=== PATIENT | female | born 1945 | race Two or more races ===

== ENCOUNTER → 2016-12-16 | Outpatient (CLI) | payer MEDICARE, MEDICAID ==
[~2016-12-16] MED LIST: OXYC5TAB2 PO; PANTOPRAZOLE PO; PROM25SU34 PO; RANITIDINE; REPA0.5T4 PO; TRAM50TA2 PO
[2016-12-16 10:01] LABS: ASPARTATE AMINO TRANSFERASE 14 U/L (15-37); BLOOD UREA NITROGEN 19 mg/dL (7-18)
== END | disposition home or self-care (01) ==
LOC: STAR 08:28
PROVIDERS: ATTEND Orthopaedic Surgery
DX: M19.011 Primary osteoarthritis, right shoulder (principal); M75.121 Complete rotator cuff tear or rupture of right shoulder, not specified as traumatic; M75.122 Complete rotator cuff tear or rupture of left shoulder, not specified as traumatic; M19.012 Primary osteoarthritis, left shoulder; M75.02 Adhesive capsulitis of left shoulder; Z96.612 Presence of left artificial shoulder joint
CPT/HCPCS: 36415; 80053; 81003; 87081; 93005

== ENCOUNTER 2016-12-22 06:57 | Inpatient (IN) | payer MEDICARE, MEDICAID ==
[~2016-12-22] VITALS: Ht 167.6 cm; Wt 96.4 kg
[~2016-12-22 06:57] MED LIST changes: +BUPIVACAINE/PF 0.5% ONE; +EPINEPHRINE 1 MG/ML, 1ML ONE; +LIDOCAINE/PF 1%, 30ML ONE
[2016-12-22] MEDS ORDERED: LACTATED RINGERS 1,000 ML IV SCH (07:19)
[2016-12-22] MEDS ORDERED: VANCOMYCIN PER PHARMACY MC STA (07:40)
[2016-12-22 07:47] VITALS: BP 124/80
[2016-12-22] MEDS ORDERED: FENTANYL PF 100 MCG/2ML ONE ×2 (07:48)
[2016-12-22] MEDS ORDERED: VANCOMYCIN 1,800 MG in SODIUM CHLORIDE 0.9% 250 ML IV ONE (08:00)
[2016-12-22] MEDS ORDERED: CLINDAMYCIN 150 MG/ML, 6ML ONE (08:37)
[2016-12-22] MEDS ORDERED: BUPIVACAINE/PF 0.5% ONE (08:47)
[2016-12-22] MEDS ORDERED: DIPHENHYDRAMINE 50 MG/ML, 1ML ONE (09:31)
[2016-12-22] MEDS ORDERED: DIPHENHYDRAMINE 50 MG/ML, 1ML IVPush ONE (09:35)
[2016-12-22] MEDS ORDERED: REPAGLINIDE 0.5 MG TABLET PO SCH (10:00)
[2016-12-22] MEDS ORDERED: SENNA/DOCUSATE TABLET PO PRN (10:00)
[2016-12-22] MEDS ORDERED: PROMETHAZINE 25 MG/ML, 1ML IM PRN (10:00)
[2016-12-22] MEDS ORDERED: BISACODYL 10 MG SUPP PR PRN (10:00)
[2016-12-22] MEDS ORDERED: morphine SULFATE 10 MG/ML, 1ML IV PRN (10:00)
[2016-12-22] MEDS ORDERED: DIPHENHYDRAMINE 25 MG CAPSULE PO PRN (10:00)
[2016-12-22] MEDS ORDERED: MAGNESIUM HYDROXIDE 8%, 30ML UDC PO PRN (10:00)
[2016-12-22] MEDS ORDERED: ONDANSETRON 2MG/ML, 2ML IV PRN (10:00)
[2016-12-22] MEDS: CEFAZOLIN PMX 2GM/50ML 50 ML IVPB SCH ×2 (10:00→18:31)
[2016-12-22] MEDS ORDERED: EPHEDRINE 50 MG/ML, 1ML ONE (10:10)
[2016-12-22] MEDS ORDERED: METOPROLOL 1 MG/ML, 5ML IV PRN (11:00)
[2016-12-22] MEDS ORDERED: HYDROcodone/APAP 7.5-325MG/15ML UDC PO PRN (11:00)
[2016-12-22] MEDS ORDERED: DIAZEPAM 5 MG/ML, 2ML IVPush PRN (11:00)
[2016-12-22] MEDS ORDERED: FENTANYL PF 100 MCG/2ML IV PRN (11:00)
[2016-12-22] MEDS ORDERED: HYDROmorphone 1 MG/ML, 1ML IV PRN (11:00)
[2016-12-22] MEDS ORDERED: ACETAMINOPHEN 325 MG TABLET PO PRN (11:00)
[2016-12-22] MEDS ORDERED: OXYcodone 5 MG/5 ML ORAL.SOL UDC PO PRN (11:00)
[2016-12-22] MEDS ORDERED: MIDAZOLAM 1 MG/ML, 2ML IV PRN (11:00)
[2016-12-22] MEDS ORDERED: ALBUTEROL SULFATE 2.5 MG/3 ML NPPB PRN (11:00)
[2016-12-22] MEDS ORDERED: PROMETHAZINE 25 MG/ML, 1ML IV PRN (11:00)
[2016-12-22] MEDS ORDERED: LABETALOL 5MG/ML, 20ML IV PRN (11:00)
[2016-12-22] MEDS ORDERED: hydrALAzine 20 MG/ML, 1ML IV PRN (11:00)
[2016-12-22] MEDS ORDERED: EPHEDRINE 50 MG/ML, 1ML IVPush PRN (11:00)
[2016-12-22] MEDS ORDERED: ONDANSETRON 2MG/ML, 2ML IVPush PRN (11:00)
[2016-12-22] MEDS ORDERED: MEPERIDINE/PF 25MG/0.5ML IVPush PRN (11:00)
[2016-12-22] MEDS ORDERED: ROCURONIUM 10 MG/ML ONE (11:01)
[2016-12-22] MEDS ORDERED: PROPOFOL 10 MG/ML, 20ML ONE (11:01)
[2016-12-22] MEDS ORDERED: SUCCINYLCHOLINE 20 MG/ML, 10ML ONE (11:01)
[2016-12-22] MEDS ORDERED: ONDANSETRON 2MG/ML, 2ML ONE (11:01)
[2016-12-22] MEDS ORDERED: NEOSTIGMINE 1 MG/ML, 10ML ONE (11:01)
[2016-12-22] MEDS ORDERED: DEXAMETHASONE 4 MG/ML, 1ML ONE (11:01)
[2016-12-22] MEDS ORDERED: GLYCOPYRROLATE 0.2MG/1ML, 5ML ONE (11:01)
[2016-12-22] MEDS: HYDROcodone/APAP 10/325 MG TABLET PO SCH ×4 (13:37→23:00)
[2016-12-22] MEDS: D5%-0.45% NACL 1,000 ML IV SCH ×2 (13:52→19:41)
[2016-12-22 20:08] VITALS: BP 117/79
[2016-12-22] MEDS: DOCUSATE 100 MG CAPSULE PO SCH (20:37)
[2016-12-23 00:49] VITALS: BP 98/62
[2016-12-23] MEDS: CEFAZOLIN PMX 2GM/50ML 50 ML IVPB SCH (02:59)
[2016-12-23] MEDS: HYDROcodone/APAP 10/325 MG TABLET PO SCH ×4 (03:13→14:30)
[2016-12-23 03:14] VITALS: BP 106/70
[2016-12-23] MEDS: D5%-0.45% NACL 1,000 ML IV SCH (05:27)
[2016-12-23] MEDS ORDERED: PANTOPROZOLE 40MG TABLET PO SCH (07:30)
[2016-12-23 07:31] VITALS: BP 107/73
[2016-12-23] MEDS: DOCUSATE 100 MG CAPSULE PO SCH (07:54)
[2016-12-23 13:45] VITALS: BP 96/63
[2016-12-23] MEDS ORDERED: HYDR-3307 PO (14:48)
== END 2016-12-23 15:09 | disposition home or self-care (01) | DRG 483 ==
LOC: ORIP 06:57 → 4NOR 12:59 → DCLOUNGE 12-23 14:45
PROVIDERS: ADMIT Orthopaedic Surgery; ATTEND Orthopaedic Surgery
PROC: 0LS30ZZ Reposition Right Upper Arm Tendon, Open Approach (ICD-10-PCS; 2016-12-22)
PROC: 0RRJ00Z Replacement of Right Shoulder Joint with Reverse Ball and Socket Synthetic Substitute, Open Approach (ICD-10-PCS; principal; 2016-12-22 09:15)
DX: M19.011 Primary osteoarthritis, right shoulder (principal); E11.9 Type 2 diabetes mellitus without complications; K21.9 Gastro-esophageal reflux disease without esophagitis; M75.21 Bicipital tendinitis, right shoulder; Z96.612 Presence of left artificial shoulder joint; Z91.041 Radiographic dye allergy status; G89.29 Other chronic pain; M65.821 Other synovitis and tenosynovitis, right upper arm
CPT/HCPCS: 82962; C1713; C1776; J0171; J0690; J1100; J2405; J2704; J2710; J3010; J3370; J3490; J0330; J1200; J7050; J7120